=== PATIENT | female | born 1995 | race African-American/Black ===

== ENCOUNTER 2017-07-09 22:03 | Emergency (ER) | payer OTHER ==
[~2017-07-09] VITALS: Ht 172.7 cm; Wt 49.2 kg
[2017-07-09 22:08] VITALS: Ht 172.7 cm; Wt 49.2 kg
[2017-07-09] MEDS ORDERED: AMOXICIL/CLAVU 875MG HOME PACK PO ONE (23:15)
[2017-07-09] MEDS ORDERED: AMOX875T PO (23:22)
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
[2017-07-09] MEDS ORDERED: IBUPROFEN 600 MG TAB ONE (23:37)
[2017-07-09 23:39] VITALS: BP 136/92; PULSE 90; TEMP 36.9; O2SAT 97
== END 2017-07-09 23:40 | disposition home or self-care (01) ==
LOC: C.EDB 22:04 → C.EDD 23:40
DX: S50.872A Other superficial bite of left forearm, initial encounter (principal); Y04.1XXA Assault by human bite, initial encounter; F17.200 Nicotine dependence, unspecified, uncomplicated